=== PATIENT | male | born 1955 | race Two or more races ===

== ENCOUNTER 2021-07-10 14:57 | Inpatient (IN) | payer OTHER ==
[~2021-07-10] VITALS: Ht 175.3 cm; Wt 88.3 kg
[2021-07-10 16:36] LABS: BASOPHILS % (AUTO) 0.5 % (0.0-2.0); EOSINOPHILS % (AUTO) 5.5 % (1.0-6.0); HEMOGLOBIN 16.6 g/dL (13.5-17.5); LYMPHOCYTES # (AUTO) 1.3 K/uL (1.0-4.8); LYMPHOCYTES % (AUTO) 16.5 % (22.0-44.0); MEAN CORPUSCULAR HEMOGLOBIN 30.7 pg (26.0-34.0); MEAN CORPUSCULAR HGB CONC 33.2 G/dL (31.0-37.0); MEAN CORPUSCULAR VOLUME 92 fL (80-100); MONOCYTES # (AUTO) 0.5 K/uL (0.1-1.0); MONOCYTES % (AUTO) 5.8 % (2.0-9.0); NEUTROPHILS # (AUTO) 5.7 K/uL (1.8-7.7); NEUTROPHILS % (AUTO) 71.7 % (40.0-70.0); PLATELET COUNT (AUTO) 264 K/uL (150-450); RED BLOOD CELL COUNT(AUTO) 5.42 MIL/uL (4.50-5.90); RED CELL DISTRIBUTION WIDTH 14.1 % (11.5-14.5)
[2021-07-10 16:38] LABS: COVID AG,FIA SOURCE NASOPHARYNGEAL
[2021-07-10 16:47] LABS: ANION GAP 9 mmol/L (8-16); CALCIUM, TOTAL 8.8 mg/dL (8.8-10.5); CARBON DIOXIDE 23 mmol/L (22-29); CHLORIDE 104 mmol/L (98-107); CREATININE 0.85 mg/dL (0.60-1.30); GLOMERULAR FILTR. RATE CALC > 60 mL/min (>60); GLUCOSE,RANDOM 94 mg/dL (70-110); POTASSIUM 4.4 mmol/L (3.5-5.1); SODIUM SERUM 136 mmol/L (136-145); UREA NITROGEN, BLOOD 16 mg/dL (7-18)
[2021-07-10 16:56] LABS: ALANINE AMINOTRANSFERASE 23 U/L (12-78); ALBUMIN 3.6 g/dL (3.4-5.0); ALKALINE PHOSPHATASE 74 U/L (46-116); ASPARTATE AMINOTRANSFERASE 21 U/L (15-37); BILIRUBIN,TOTAL 0.4 mg/dL (0.1-1.0); TOTAL PROTEIN, SERUM 7.7 g/dL (6.4-8.2)
[2021-07-10 17:17] LABS: B-TYPE NATRIURETIC PEPTIDE 17 pg/mL (0-100)
[2021-07-10] MEDS ORDERED: ACETAMINOPHEN 325 MG TABLET PO PRN (18:15)
[2021-07-10] MEDS ORDERED: ONDANSETRON HCL 4 MG/2 ML VIAL IVP PRN (18:15)
[2021-07-10] MEDS ORDERED: 0.9% SODIUM CHLORIDE 10 ML SYRINGE IVP PRN (18:15)
[2021-07-10 23:00] VITALS: BP 155/85
[2021-07-10] MEDS ORDERED: PNEUMOCOCCAL VACCINE POLYVALENT 0.5 ML VIAL [PPSV23] IM. ONE (23:15)
[2021-07-10] MEDS ORDERED: INFLUENZA VIRUS VACCINE QVS 2021-22 (6MO+)/PF 60 MCG/0.5 ML SYRINGE IM. ONE (23:15)
[2021-07-11 04:50] VITALS: BP 124/54
[2021-07-11] MEDS ORDERED: DEXTROSE 50%-WATER 25 GM/50 ML SYRINGE IVP PRN (05:15)
[2021-07-11 06:36] LABS: GLUCOMETER DEV NAME(LOC) 6N.1; GLUCOSE,POINT OF CARE 107 MG/DL (70-110)
[2021-07-11] MEDS ORDERED: ACETAMINOPHEN 325 MG TABLET PO PRN (07:45)
[2021-07-11] MEDS ORDERED: ONDANSETRON HCL 4 MG/2 ML VIAL IVP PRN (07:45)
[2021-07-11 07:52] LABS: BASOPHILS % (AUTO) 0.6 % (0.0-2.0); EOSINOPHILS % (AUTO) 9.2 % (1.0-6.0); HEMATOCRIT 49.9 % (41-53); HEMOGLOBIN 16.6 g/dL (13.5-17.5); LYMPHOCYTES # (AUTO) 1.7 K/uL (1.0-4.8); LYMPHOCYTES % (AUTO) 23.6 % (22.0-44.0); MEAN CORPUSCULAR HEMOGLOBIN 30.6 pg (26.0-34.0); MEAN CORPUSCULAR HGB CONC 33.3 G/dL (31.0-37.0); MEAN CORPUSCULAR VOLUME 92 fL (80-100); MONOCYTES # (AUTO) 0.7 K/uL (0.1-1.0); MONOCYTES % (AUTO) 9.4 % (2.0-9.0); NEUTROPHILS # (AUTO) 4.2 K/uL (1.8-7.7); NEUTROPHILS % (AUTO) 57.2 % (40.0-70.0); PLATELET COUNT (AUTO) 255 K/uL (150-450); RED BLOOD CELL COUNT(AUTO) 5.42 MIL/uL (4.50-5.90); RED CELL DISTRIBUTION WIDTH 13.8 % (11.5-14.5)
[2021-07-11 08:08] LABS: ALANINE AMINOTRANSFERASE 22 U/L (12-78); ALBUMIN 3.5 g/dL (3.4-5.0); ALKALINE PHOSPHATASE 71 U/L (46-116); ANION GAP 6 mmol/L (8-16); ASPARTATE AMINOTRANSFERASE 15 U/L (15-37); BILIRUBIN,TOTAL 0.4 mg/dL (0.1-1.0); CALCIUM, TOTAL 8.8 mg/dL (8.8-10.5); CARBON DIOXIDE 28 mmol/L (22-29); CHLORIDE 103 mmol/L (98-107); CREATININE 0.86 mg/dL (0.60-1.30); GLOMERULAR FILTR. RATE CALC > 60 mL/min (>60); GLUCOSE,RANDOM 94 mg/dL (70-110); SODIUM SERUM 137 mmol/L (136-145); TOTAL PROTEIN, SERUM 7.2 g/dL (6.4-8.2); UREA NITROGEN, BLOOD 19 mg/dL (7-18)
[2021-07-11 08:30] VITALS: BP 139/80
[2021-07-11] MEDS: AmLODIPine BESYLATE 5 MG TABLET PO SCH (08:30)
[2021-07-11] MEDS: HEPARIN SODIUM,PORCINE 5,000 UNITS/ML VIAL SQ SCH ×3 (08:31→23:41)
[2021-07-11] MEDS ORDERED: SODIUM CHLORIDE 3% 15 ML NEB SOLUTION NEB ONE ×3 (11:14→20:47)
[2021-07-11] MEDS: FAMOTIDINE 20 MG TABLET PO SCH ×2 (15:06→20:32)
[2021-07-11 16:31] VITALS: BP 128/78
[2021-07-11 20:30] VITALS: BP 133/88
[2021-07-11] MEDS: DiphenhydrAMINE HCL 25 MG CAPSULE PO PRN (20:32)
[2021-07-11] MEDS: INSULIN LISPRO 100 UNITS/ML SQ PRN (20:36)
[2021-07-11] MEDS ORDERED: 0.9% SODIUM CHLORIDE 5 ML NEB SOLUTION NEB ONE (20:59)
[2021-07-12 00:51] LABS: GLUCOMETER DEV NAME(LOC) 6N.1; GLUCOSE,POINT OF CARE 159 MG/DL (70-110)
[2021-07-12 00:51] LABS: GLUCOMETER DEV NAME(LOC) 6N.1; GLUCOSE,POINT OF CARE 97 MG/DL (70-110)
[2021-07-12 00:51] LABS: GLUCOMETER DEV NAME(LOC) 6N.1; GLUCOSE,POINT OF CARE 82 MG/DL (70-110)
[2021-07-12 04:40] VITALS: BP 120/76
[2021-07-12] MEDS ORDERED: SODIUM CHLORIDE 3% 15 ML NEB SOLUTION NEB ONE (05:59)
[2021-07-12] MEDS ORDERED: 0.9% SODIUM CHLORIDE 5 ML NEB SOLUTION NEB ONE (06:16)
[2021-07-12 06:30] LABS: ALANINE AMINOTRANSFERASE 25 U/L (12-78); ALBUMIN 3.6 g/dL (3.4-5.0); ALKALINE PHOSPHATASE 76 U/L (46-116); ANION GAP 7 mmol/L (8-16); ASPARTATE AMINOTRANSFERASE 19 U/L (15-37); BILIRUBIN,TOTAL 0.4 mg/dL (0.1-1.0); CALCIUM, TOTAL 8.8 mg/dL (8.8-10.5); CARBON DIOXIDE 28 mmol/L (22-29); CHLORIDE 103 mmol/L (98-107); CREATININE 0.99 mg/dL (0.60-1.30); GLOMERULAR FILTR. RATE CALC > 60 mL/min (>60); GLUCOSE,RANDOM 90 mg/dL (70-110); SODIUM SERUM 138 mmol/L (136-145); TOTAL PROTEIN, SERUM 7.6 g/dL (6.4-8.2); UREA NITROGEN, BLOOD 19 mg/dL (7-18)
[2021-07-12 06:32] LABS: GLUCOMETER DEV NAME(LOC) 6S.1; GLUCOSE,POINT OF CARE 106 MG/DL (70-110)
[2021-07-12 06:38] LABS: BASOPHILS % (AUTO) 0.5 % (0.0-2.0); HEMATOCRIT 49.8 % (41-53); HEMOGLOBIN 16.8 g/dL (13.5-17.5); LYMPHOCYTES # (AUTO) 1.9 K/uL (1.0-4.8); LYMPHOCYTES % (AUTO) 24.5 % (22.0-44.0); MEAN CORPUSCULAR HGB CONC 33.8 G/dL (31.0-37.0); MEAN CORPUSCULAR VOLUME 92 fL (80-100); MONOCYTES # (AUTO) 0.8 K/uL (0.1-1.0); MONOCYTES % (AUTO) 10.3 % (2.0-9.0); NEUTROPHILS # (AUTO) 4.3 K/uL (1.8-7.7); NEUTROPHILS % (AUTO) 56.7 % (40.0-70.0); PLATELET COUNT (AUTO) 253 K/uL (150-450); RED BLOOD CELL COUNT(AUTO) 5.42 MIL/uL (4.50-5.90); RED CELL DISTRIBUTION WIDTH 14.2 % (11.5-14.5)
[2021-07-12 08:07] VITALS: BP 129/78
[2021-07-12] MEDS: AmLODIPine BESYLATE 5 MG TABLET PO SCH (08:56)
[2021-07-12] MEDS: FAMOTIDINE 20 MG TABLET PO SCH ×2 (08:57→20:51)
[2021-07-12] MEDS: HEPARIN SODIUM,PORCINE 5,000 UNITS/ML VIAL SQ SCH ×3 (08:57→23:43)
[2021-07-12 13:37] LABS: GLUCOMETER DEV NAME(LOC) 6N.1; GLUCOSE,POINT OF CARE 91 MG/DL (70-110)
[2021-07-12 15:42] VITALS: BP 137/78
[2021-07-12] MEDS: INSULIN LISPRO 100 UNITS/ML SQ PRN (17:19)
[2021-07-12 19:06] LABS: GLUCOMETER DEV NAME(LOC) 6S.1; GLUCOSE,POINT OF CARE 168 MG/DL (70-110)
[2021-07-12 20:17] VITALS: BP 145/81
[2021-07-12 21:06] LABS: QUANTIFERON, TB GOLD PLUS Positive (Negative)
[2021-07-12 21:48] LABS: GLUCOMETER DEV NAME(LOC) 6N.1; GLUCOSE,POINT OF CARE 115 MG/DL (70-110)
[2021-07-13 04:15] VITALS: BP 132/78
[2021-07-13 06:17] LABS: GLUCOMETER DEV NAME(LOC) 6N.1; GLUCOSE,POINT OF CARE 108 MG/DL (70-110)
[2021-07-13 07:30] VITALS: BP 134/87
[2021-07-13] MEDS: FAMOTIDINE 20 MG TABLET PO SCH ×2 (08:18→19:56)
[2021-07-13] MEDS: HEPARIN SODIUM,PORCINE 5,000 UNITS/ML VIAL SQ SCH ×3 (08:18→23:45)
[2021-07-13] MEDS: AmLODIPine BESYLATE 5 MG TABLET PO SCH (08:18)
[2021-07-13 15:16] LABS: GLUCOMETER DEV NAME(LOC) 6S.1; GLUCOSE,POINT OF CARE 114 MG/DL (70-110)
[2021-07-13 17:22] LABS: GLUCOMETER DEV NAME(LOC) 6S.1; GLUCOSE,POINT OF CARE 98 MG/DL (70-110)
[2021-07-13 20:45] VITALS: BP 137/77
[2021-07-13 23:03] LABS: GLUCOMETER DEV NAME(LOC) 6N.1; GLUCOSE,POINT OF CARE 133 MG/DL (70-110)
[2021-07-14 05:10] VITALS: BP 129/62
[2021-07-14 07:40] VITALS: BP 141/86
[2021-07-14] MEDS: AmLODIPine BESYLATE 5 MG TABLET PO SCH (08:35)
[2021-07-14] MEDS: FAMOTIDINE 20 MG TABLET PO SCH ×2 (08:35→20:10)
[2021-07-14] MEDS: HEPARIN SODIUM,PORCINE 5,000 UNITS/ML VIAL SQ SCH ×3 (08:35→23:40)
[2021-07-14] MEDS ORDERED: PRAMOXINE HCL/CALAMINE 177 ML BOTTLE TP PRN (12:45)
[2021-07-14 15:13] LABS: GLUCOMETER DEV NAME(LOC) 6S.1; GLUCOSE,POINT OF CARE 108 MG/DL (70-110)
[2021-07-14 16:07] VITALS: BP 141/86
[2021-07-14 18:24] LABS: GLUCOMETER DEV NAME(LOC) 6N.1; GLUCOSE,POINT OF CARE 104 MG/DL (70-110)
[2021-07-14 18:24] LABS: GLUCOMETER DEV NAME(LOC) 6N.1; GLUCOSE,POINT OF CARE 100 MG/DL (70-110)
[2021-07-14 19:50] VITALS: BP 146/90
[2021-07-14] MEDS: INSULIN LISPRO 100 UNITS/ML SQ PRN (20:17)
[2021-07-14 20:48] LABS: GLUCOMETER DEV NAME(LOC) 6S.1; GLUCOSE,POINT OF CARE 146 MG/DL (70-110)
[2021-07-15 05:00] VITALS: BP 135/84
[2021-07-15 07:04] LABS: BASOPHILS % (AUTO) 0.5 % (0.0-2.0); EOSINOPHILS % (AUTO) 0.4 % (1.0-6.0); HEMOGLOBIN 17.8 g/dL (13.5-17.5); LYMPHOCYTES # (AUTO) 0.5 K/uL (1.0-4.8); LYMPHOCYTES % (AUTO) 6.6 % (22.0-44.0); MEAN CORPUSCULAR HEMOGLOBIN 30.8 pg (26.0-34.0); MEAN CORPUSCULAR HGB CONC 33.5 G/dL (31.0-37.0); MEAN CORPUSCULAR VOLUME 92 fL (80-100); MONOCYTES # (AUTO) 0.5 K/uL (0.1-1.0); NEUTROPHILS # (AUTO) 6.5 K/uL (1.8-7.7); PLATELET COUNT (AUTO) 233 K/uL (150-450); RED BLOOD CELL COUNT(AUTO) 5.78 MIL/uL (4.50-5.90); RED CELL DISTRIBUTION WIDTH 13.9 % (11.5-14.5)
[2021-07-15 07:08] LABS: NEUTROPHILS % (AUTO) 85.5 % (40.0-70.0)
[2021-07-15 07:18] LABS: CALCIUM, TOTAL 9.4 mg/dL (8.8-10.5); CREATININE 1.23 mg/dL (0.60-1.30); POTASSIUM 4.9 mmol/L (3.5-5.1)
[2021-07-15 07:33] VITALS: BP 122/92
[2021-07-15 07:39] LABS: GLUCOMETER DEV NAME(LOC) 6N.1; GLUCOSE,POINT OF CARE 114 MG/DL (70-110)
[2021-07-15] MEDS: AmLODIPine BESYLATE 5 MG TABLET PO SCH (08:24)
[2021-07-15] MEDS: HEPARIN SODIUM,PORCINE 5,000 UNITS/ML VIAL SQ SCH ×3 (08:24→23:42)
[2021-07-15] MEDS: FAMOTIDINE 20 MG TABLET PO SCH ×2 (08:24→20:12)
[2021-07-15] MEDS: INSULIN LISPRO 100 UNITS/ML SQ PRN ×2 (12:14→20:24)
[2021-07-15 15:18] VITALS: BP 128/78
[2021-07-15 19:36] VITALS: BP 121/84
[2021-07-15 19:51] LABS: GLUCOMETER DEV NAME(LOC) 6S.1; GLUCOSE,POINT OF CARE 143 MG/DL (70-110)
[2021-07-15 19:51] LABS: GLUCOMETER DEV NAME(LOC) 6N.1; GLUCOSE,POINT OF CARE 106 MG/DL (70-110)
[2021-07-15] MEDS: CLOTRIMAZOLE 1% 15 GM CREAM TP SCH (20:13)
[2021-07-15] MEDS: DiphenhydrAMINE HCL 25 MG CAPSULE PO PRN (20:17)
[2021-07-16 02:38] LABS: GLUCOMETER DEV NAME(LOC) 6N.1; GLUCOSE,POINT OF CARE 148 MG/DL (70-110)
[2021-07-16 04:40] VITALS: BP 120/86
[2021-07-16 06:00] LABS: BASOPHILS % (AUTO) 0.5 % (0.0-2.0); EOSINOPHILS % (AUTO) 2.2 % (1.0-6.0); HEMATOCRIT 51.9 % (41-53); HEMOGLOBIN 17.2 g/dL (13.5-17.5); LYMPHOCYTES # (AUTO) 1.3 K/uL (1.0-4.8); LYMPHOCYTES % (AUTO) 21.4 % (22.0-44.0); MEAN CORPUSCULAR HEMOGLOBIN 30.6 pg (26.0-34.0); MEAN CORPUSCULAR HGB CONC 33.2 G/dL (31.0-37.0); MEAN CORPUSCULAR VOLUME 92 fL (80-100); MONOCYTES # (AUTO) 1.1 K/uL (0.1-1.0); MONOCYTES % (AUTO) 18.5 % (2.0-9.0); NEUTROPHILS # (AUTO) 3.5 K/uL (1.8-7.7); NEUTROPHILS % (AUTO) 57.4 % (40.0-70.0); PLATELET COUNT (AUTO) 214 K/uL (150-450); RED BLOOD CELL COUNT(AUTO) 5.63 MIL/uL (4.50-5.90); RED CELL DISTRIBUTION WIDTH 13.7 % (11.5-14.5)
[2021-07-16 06:11] LABS: ALBUMIN 3.5 g/dL (3.4-5.0); BILIRUBIN,TOTAL 0.4 mg/dL (0.1-1.0); CALCIUM, TOTAL 9.1 mg/dL (8.8-10.5); CREATININE 1.27 mg/dL (0.60-1.30); POTASSIUM 4.8 mmol/L (3.5-5.1); TOTAL PROTEIN, SERUM 7.7 g/dL (6.4-8.2)
[2021-07-16 06:49] LABS: GLUCOMETER DEV NAME(LOC) 6N.1; GLUCOSE,POINT OF CARE 105 MG/DL (70-110)
[2021-07-16 07:44] VITALS: BP 131/78
[2021-07-16] MEDS: HEPARIN SODIUM,PORCINE 5,000 UNITS/ML VIAL SQ SCH ×2 (08:53→15:05)
[2021-07-16] MEDS: FAMOTIDINE 20 MG TABLET PO SCH ×2 (08:53→20:28)
[2021-07-16] MEDS: AmLODIPine BESYLATE 5 MG TABLET PO SCH (08:53)
[2021-07-16] MEDS: CLOTRIMAZOLE 1% 15 GM CREAM TP SCH ×2 (12:06→20:28)
[2021-07-16] MEDS ORDERED: GuaiFENesin [SUGAR-FREE] 200 MG/10 ML SOLUTION UDCUP PO PRN (19:00)
[2021-07-16 20:08] LABS: GLUCOMETER DEV NAME(LOC) 6N.1; GLUCOSE,POINT OF CARE 119 MG/DL (70-110)
[2021-07-16 20:09] LABS: GLUCOMETER DEV NAME(LOC) 6N.1; GLUCOSE,POINT OF CARE 129 MG/DL (70-110)
[2021-07-16 20:28] VITALS: BP 137/80
[2021-07-16] MEDS: DOCUSATE SODIUM 100 MG CAPSULE PO PRN (20:28)
[2021-07-17 00:17] LABS: GLUCOMETER DEV NAME(LOC) 6S.1; GLUCOSE,POINT OF CARE 126 MG/DL (70-110)
[2021-07-17 04:58] VITALS: BP 143/95
[2021-07-17] MEDS: HEPARIN SODIUM,PORCINE 5,000 UNITS/ML VIAL SQ SCH ×5 (07:59→23:37)
[2021-07-17] MEDS: AmLODIPine BESYLATE 5 MG TABLET PO SCH (08:01)
[2021-07-17] MEDS: FAMOTIDINE 20 MG TABLET PO SCH ×2 (08:01→19:58)
[2021-07-17] MEDS: DOCUSATE SODIUM 100 MG CAPSULE PO PRN (08:03)
[2021-07-17 08:05] VITALS: BP 131/87
[2021-07-17] MEDS: CLOTRIMAZOLE 1% 15 GM CREAM TP SCH ×2 (09:13→19:58)
[2021-07-17 19:25] LABS: GLUCOMETER DEV NAME(LOC) 6S.1; GLUCOSE,POINT OF CARE 121 MG/DL (70-110)
[2021-07-17 19:25] LABS: GLUCOMETER DEV NAME(LOC) 6S.1; GLUCOSE,POINT OF CARE 130 MG/DL (70-110)
[2021-07-17 19:25] LABS: GLUCOMETER DEV NAME(LOC) 6N.1; GLUCOSE,POINT OF CARE 116 MG/DL (70-110)
[2021-07-17 19:45] VITALS: BP 138/81
[2021-07-18] MEDS: DiphenhydrAMINE HCL 25 MG CAPSULE PO PRN (01:00)
[2021-07-18 03:55] VITALS: BP 127/75
[2021-07-18 05:52] LABS: GLUCOMETER DEV NAME(LOC) 6N.1; GLUCOSE,POINT OF CARE 138 MG/DL (70-110)
[2021-07-18] MEDS: HEPARIN SODIUM,PORCINE 5,000 UNITS/ML VIAL SQ SCH ×2 (08:00→08:34)
[2021-07-18 08:07] VITALS: BP 126/53
[2021-07-18] MEDS: FAMOTIDINE 20 MG TABLET PO SCH (08:34)
[2021-07-18] MEDS: CLOTRIMAZOLE 1% 15 GM CREAM TP SCH (08:34)
[2021-07-18] MEDS: AmLODIPine BESYLATE 5 MG TABLET PO SCH (08:35)
[2021-07-18] MEDS ORDERED: CLOT15CR29 TP (10:45)
[2021-07-18] MEDS ORDERED: AMLO-257 PO (10:45)
[2021-07-18 20:18] LABS: GLUCOMETER DEV NAME(LOC) 6S.1; GLUCOSE,POINT OF CARE 105 MG/DL (70-110)
[2021-07-18 23:41] LABS: GLUCOMETER DEV NAME(LOC) 6N.1; GLUCOSE,POINT OF CARE 106 MG/DL (70-110)
== END 2021-07-18 12:10 | DRG 179 ==
LOC: EMS 15:05 → 6S 22:15
PROVIDERS: ADMIT Internal Medicine; ATTEND Internal Medicine
DX: A15.9 Respiratory tuberculosis unspecified (principal); R05.3 Chronic cough; J45.909 Unspecified asthma, uncomplicated; R63.4 Abnormal weight loss; E78.00 Pure hypercholesterolemia, unspecified; I10 Essential (primary) hypertension; E11.9 Type 2 diabetes mellitus without complications; Z20.822 Contact with and (suspected) exposure to COVID-19; E78.5 Hyperlipidemia, unspecified; F17.210 Nicotine dependence, cigarettes, uncomplicated; Z86.11 Personal history of tuberculosis; Z78.9 Other specified health status; I25.2 Old myocardial infarction
CPT/HCPCS: 71045; 80048; 80053; 82962; 83880; 84484; 85025; 86480; 87015; 87206; 87556; 99285; J1644; 36415-L1; 36415-TC

== ENCOUNTER 2024-12-07 13:40 | Inpatient (IN) | payer OTHER ==
[~2024-12-07] VITALS: Ht 175.3 cm; Wt 90.0 kg
[~2024-12-07 13:40] MED LIST: AMLO-257 PO; CLOT15CR29 TP
[2024-12-07 14:49] LABS: LYMPHOCYTES # (AUTO) 1.3 K/uL (1.0-4.8); MONOCYTES # (AUTO) 0.5 K/uL (0.1-1.0); NEUTROPHILS # (AUTO) 3.9 K/uL (1.8-7.7)
[2024-12-07 14:54] LABS: BASOPHILS % (AUTO) 0.5 % (0.0-2.0); EOSINOPHILS % (AUTO) 1.6 % (1.0-6.0); HEMATOCRIT 52.4 % (41-53); HEMOGLOBIN 17.7 g/dL (13.5-17.5); MEAN CORPUSCULAR HEMOGLOBIN 31.5 pg (26.0-34.0); MEAN CORPUSCULAR HGB CONC 33.8 G/dL (31.0-37.0); MEAN CORPUSCULAR VOLUME 93 fL (80-100); NEUTROPHILS % (AUTO) 65.9 % (40.0-70.0); PLATELET COUNT (AUTO) 246 K/uL (150-450); RED BLOOD CELL COUNT(AUTO) 5.61 MIL/uL (4.50-5.90); WHITE BLOOD COUNT (AUTO) 5.8 K/uL (4.5-11.0)
[2024-12-07 14:57] LABS: ANION GAP 9 mmol/L (8-16); CALCIUM, TOTAL 9.2 mg/dL (8.8-10.5); CARBON DIOXIDE 27 mmol/L (22-29); CHLORIDE 103 mmol/L (98-107); CREATININE 0.97 mg/dL (0.60-1.30); GLOMERULAR FILTR. RATE CALC > 60 mL/min (>60); GLUCOSE,RANDOM 105 mg/dL (70-110); POTASSIUM 4.5 mmol/L (3.5-5.1); SODIUM SERUM 139 mmol/L (136-145); UREA NITROGEN, BLOOD 26 mg/dL (7-18)
[2024-12-07 15:02] LABS: PROTHROMBIN TIME 11.4 SEC (9.4-11.6)
[2024-12-07 15:03] LABS: ALBUMIN 3.8 g/dL (3.4-5.0); BILIRUBIN,DIRECT 0.1 mg/dL (0.00-0.20); BILIRUBIN,TOTAL 0.4 mg/dL (0.1-1.0); TOTAL PROTEIN, SERUM 8.1 g/dL (6.4-8.2)
[2024-12-07 15:07] LABS: CREATINE KINASE, TOTAL ONLY 140 U/L (39-308); TROPONIN I-HIGH SENSITIVITY 13 ng/L (<76)
[2024-12-07 15:22] LABS: B-TYPE NATRIURETIC PEPTIDE < 5 pg/mL (0-100)
[2024-12-07 17:11] LABS: APPEARANCE,URINE CLEAR (CLEAR); BILIRUBIN,URINE NEGATIVE (NEGATIVE); COLOR,URINE YELLOW (YELLOW); GLUCOSE, URINE (UA) NEGATIVE (NEGATIVE); LEUKOCYTE ESTERASE ,URINE NEGATIVE (NEGATIVE); NITRATE,URINE NEGATIVE (NEGATIVE); OCCULT BLOOD,URINE TRACE (NEGATIVE); PROTEIN,URINE 30-70 mg/dL (NEGATIVE); SPECIFIC GRAVITIY, URINE 1.032 (1.003-1.030); UROBILINOGEN,URINE <=1.0 mg/dL (<=1.0)
[2024-12-07] MEDS: ACETAMINOPHEN 500 MG TABLET PO ONE (17:12)
[2024-12-07 17:38] LABS: BACTERIA,URINE Few /HPF (None Seen); HYALINE CASTS, URINE 0-2 /LPF (None Seen); MUCUS,URINE Few LPF (None Seen); SQUAMOUS EPITHELIAL CELL,UR Few /LPF (None Seen); WBC,URINE 0-2 /HPF (0-5)
[2024-12-07] MEDS ORDERED: DEXTROSE 50%-WATER 25 GM/50 ML SYRINGE IVP PRN (17:45)
[2024-12-07] MEDS ORDERED: MAGNESIUM HYDROXIDE SUSPENSION 30 ML UDCUP PO PRN (17:45)
[2024-12-07] MEDS ORDERED: ZOLPIDEM TARTRATE 5 MG TABLET PO PRN (17:45)
[2024-12-07] MEDS ORDERED: ACETAMINOPHEN 325 MG TABLET PO PRN (17:45)
[2024-12-07] MEDS ORDERED: MORPHINE SULFATE 2 MG/ML SYRINGE IVP PRN (17:45)
[2024-12-07] MEDS ORDERED: BISACODYL 10 MG RECTAL RECTAL SUPPOSITORY PR PRN (17:45)
[2024-12-07] MEDS ORDERED: ONDANSETRON HCL 4 MG/2 ML VIAL IVP PRN (17:45)
[2024-12-07 20:37] VITALS: BP 136/72; PULSE 81; RESP 17; TEMP 97.5; O2SAT 95
[2024-12-07] MEDS: DOCUSATE SODIUM 100 MG CAPSULE PO SCH (21:02)
[2024-12-07] MEDS: HYDROCODONE/ACETAMINOPHEN 5-325 MG TABLET PO PRN (21:03)
[2024-12-07] MEDS: INSULIN LISPRO 100 UNITS/ML SQ PRN (21:04)
[2024-12-08 00:39] VITALS: BP 124/66; PULSE 81; RESP 18; TEMP 97.6; O2SAT 94
[2024-12-08 04:01] LABS: GLUCOMETER DEV NAME(LOC) 5N.1D; GLUCOSE,POINT OF CARE 226 MG/DL (70-110)
[2024-12-08 05:50] LABS: GLUCOMETER DEV NAME(LOC) 5N.1D; GLUCOSE,POINT OF CARE 110 MG/DL (70-110)
[2024-12-08 05:51] VITALS: BP 129/71; PULSE 88; RESP 17; TEMP 97.5; O2SAT 96
[2024-12-08 07:01] LABS: BASOPHILS % (AUTO) 0.7 % (0.0-2.0); EOSINOPHILS % (AUTO) 6.5 % (1.0-6.0); HEMATOCRIT 50.3 % (41-53); LYMPHOCYTES # (AUTO) 1.8 K/uL (1.0-4.8); LYMPHOCYTES % (AUTO) 28.7 % (22.0-44.0); MEAN CORPUSCULAR HEMOGLOBIN 31.4 pg (26.0-34.0); MEAN CORPUSCULAR HGB CONC 33.7 G/dL (31.0-37.0); MEAN CORPUSCULAR VOLUME 93 fL (80-100); MONOCYTES # (AUTO) 0.7 K/uL (0.1-1.0); MONOCYTES % (AUTO) 11.7 % (2.0-9.0); NEUTROPHILS # (AUTO) 3.3 K/uL (1.8-7.7); NEUTROPHILS % (AUTO) 52.4 % (40.0-70.0); PLATELET COUNT (AUTO) 241 K/uL (150-450); RED BLOOD CELL COUNT(AUTO) 5.41 MIL/uL (4.50-5.90); WHITE BLOOD COUNT (AUTO) 6.3 K/uL (4.5-11.0)
[2024-12-08 07:10] LABS: ANION GAP 11 mmol/L (8-16); CALCIUM, TOTAL 9.3 mg/dL (8.8-10.5); CARBON DIOXIDE 27 mmol/L (22-29); CHLORIDE 103 mmol/L (98-107); CREATININE 0.83 mg/dL (0.60-1.30); GLOMERULAR FILTR. RATE CALC > 60 mL/min (>60); GLUCOSE,RANDOM 98 mg/dL (70-110); POTASSIUM 3.9 mmol/L (3.5-5.1); SODIUM SERUM 141 mmol/L (136-145); UREA NITROGEN, BLOOD 24 mg/dL (7-18)
[2024-12-08 07:47] VITALS: BP 130/71; PULSE 97; RESP 18; TEMP 97.8; O2SAT 95
[2024-12-08] MEDS: PANTOPRAZOLE SODIUM 40 MG DR TABLET PO SCH (08:12)
[2024-12-08] MEDS: AmLODIPine BESYLATE 5 MG TABLET PO SCH (08:12)
[2024-12-08] MEDS: ISONIAZID 300 MG TABLET PO SCH (08:30)
[2024-12-08] MEDS: RIFAMPIN 300 MG CAPSULE PO SCH (08:30)
[2024-12-08] MEDS: PYRIDOXINE HCL 50 MG TABLET PO SCH (08:30)
[2024-12-08] MEDS: PYRAZINAMIDE 500 MG TABLET PO SCH (08:30)
[2024-12-08] MEDS: ETHAMBUTOL HCL 400 MG TABLET PO SCH (08:30)
[2024-12-08 12:17] VITALS: BP 136/81; PULSE 98; RESP 18; TEMP 97.9; O2SAT 94
[2024-12-08] MEDS ORDERED: ETHA400T25 PO (12:43)
[2024-12-08] MEDS ORDERED: ISON300T90 PO (12:43)
[2024-12-08] MEDS ORDERED: PANT-31 PO (12:44)
[2024-12-08] MEDS ORDERED: PYRA500T33 PO (12:44)
[2024-12-08] MEDS ORDERED: PYRI-9 PO (12:45)
[2024-12-08] MEDS ORDERED: BISA10SU11 PR (12:46)
[2024-12-08] MEDS ORDERED: RIFA300C63 PO (12:46)
== END 2024-12-08 13:20 | DRG 552 ==
LOC: EMS 13:49 → EDH 17:04 → 5S 20:30
PROVIDERS: ADMIT Internal Medicine; ATTEND Internal Medicine
DX: M54.2 Cervicalgia (principal); S09.8XXA Other specified injuries of head, initial encounter; I10 Essential (primary) hypertension; E11.9 Type 2 diabetes mellitus without complications; R51.9 Headache, unspecified; J45.909 Unspecified asthma, uncomplicated; E78.00 Pure hypercholesterolemia, unspecified; X58.XXXA Exposure to other specified factors, initial encounter; Z79.899 Other long term (current) drug therapy; Z86.15 Personal history of latent tuberculosis infection; Y93.89 Activity, other specified; Y92.89 Other specified places as the place of occurrence of the external cause; Y99.8 Other external cause status
CPT/HCPCS: 70450; 71045; 72125; 80048; 80076; 81001; 82550; 82962; 83880; 84484; 85025; 85610; 85730; 93005; 99285; 36415-L1; 36415-TC